=== PATIENT | female | born 1965 | race American Indian/Alaskan Native ===

== ENCOUNTER 2016-07-06 16:40 | Emergency (ER) | payer SELFPAY ==
[2016-07-06 17:28] VITALS: BP 139/98
[2016-07-06] MEDS ORDERED: NACL 0.9% 1000 ML 1,000 ML IV ONE (20:13)
[2016-07-06] MEDS ORDERED: TORADOL IV ONE (20:13)
[2016-07-06 20:33] LABS: Basophils % (Auto) 0.6 % (0.0-1.8); Eosinophils % (Auto) 0.5 % (0.0-4.3); Mean Corpuscular HGB Conc 31 % (30-34); Mean Corpuscular Volume 71 fl (79-97); Platelet Count 232 K/mm3 (140-440); Red Blood Count 4.68 M/mm3 (3.65-5.03); White Blood Count 10.4 K/mm3 (4.5-11.0)
[2016-07-06 20:36] LABS: Mean Corpuscular Hemoglobin 22 pg (28-32)
--- NOTE | 2016-07-06 20:41 | Emergency Department Report ---
ED General Adult HPI - General Chief complaint: Sore Throat Stated complaint: FEVER/THYROID PAIN/ Time Seen by Provider: 07/06/16 20:00 Source: patient Mode of arrival: Ambulatory Limitations: No Limitations - History of Present Illness Initial comments: PT states she is here for swelling in her throat. PT states she has had a lump in her throat for 1.5 years. PT states the swelling has gradually worsened over the last week. PT states she went to donate plasma and they would not let her donate due to the neck swelling. PT states she was told to go to the ED for evaluation three days ago. MD Complaint: mass on neck -: Gradual Location: neck Radiation: non-radiation Severity scale (0 -10): 9 Quality: sharp Consistency: constant Improves with: none Associated Symptoms: fever/chills, nausea/vomiting. denies: chest pain, cough, rash Treatments Prior to Arrival: none - Related Data Previous Rx's Medication Instructions Recorded Last Taken Type Ondansetron [Zofran ODT TAB] 8 mg PO Q8HR #6 tab.rapdis 05/08/15 Unknown Rx Allergies Allergy/AdvReac Type Severity Reaction Status Date / Time No Known Allergies Allergy Verified 05/08/15 04:05 ED Review of Systems ROS: Stated complaint: FEVER/THYROID PAIN/ Other details as noted in HPI Comment: All other systems reviewed and negative Constitutional: fever, malaise. denies: weakness ENT: throat pain Respiratory: denies: cough Cardiovascular: palpitations. denies: chest pain, syncope Gastrointestinal: nausea, diarrhea. denies: abdominal pain, vomiting Musculoskeletal: denies: back pain Skin: denies: rash, lesions, change in color, change in hair/nails ED Past Medical Hx - Past Medical History Previous Medical History?: No - Surgical History Additional Surgical History: tubal ligation - Social History Smoking Status: Current Every Day Smoker Substance Use Type: Alcohol - Medications Home Medications: Home Medications Medication Instructions Recorded Confirmed Last Taken Type Ondansetron [Zofran ODT TAB] 8 mg PO Q8HR #6 tab.rapdis 05/08/15 Unknown Rx ED Physical Exam - General Limitations: No Limitations General appearance: alert, in no apparent distress - Head Head exam: Present: atraumatic, normocephalic - Eye Eye exam: Present: normal appearance. Absent: conjunctival injection - ENT ENT exam: Present: normal exam, normal orophraynx, mucous membranes moist, TM's normal bilaterally, normal external ear exam - Neck Neck exam: Present: full ROM, thyromegaly, other (swelling to ant neck ). Absent: tenderness - Respiratory Respiratory exam: Present: normal lung sounds bilaterally. Absent: respiratory distress, wheezes, rales, rhonchi - Cardiovascular Cardiovascular Exam: Present: regular rate, normal rhythm - GI/Abdominal GI/Abdominal exam: Present: soft. Absent: tenderness - Extremities Exam Extremities exam: Present: normal inspection, full ROM - Back Exam Back exam: Present: normal inspection, full ROM - Neurological Exam Neurological exam: Present: alert, oriented X3 - Psychiatric Psychiatric exam: Present: normal affect, normal mood - Skin Skin exam: Present: warm, dry, intact, normal color. Absent: rash ED Course Vital Signs 07/06/16 17:20 Temperature 99.1 F Pulse Rate 85 Respiratory 18 Rate Blood Pressure 139/98 O2 Sat by Pulse 99 Oximetry - Reevaluation(s) Reevaluation #1: 07/06/16 20:45 PT aware of plan of care. PT has no questions at this time. Reevaluation #2: 07/06/16 22:39 Dr Chadwick aware of pt and plan of care. PT aware of dx and plan of care. - Consultations Consultation #1: 07/06/16 22:25 Dr Jones consulted, pt to follow up with office outpt. - Pulse Oximetry Interpretation Digit-Finger Initial Pulse Oximetry Readin Actions Taken: none ED Medical Decision Making - Lab Data Result diagrams: 07/06/16 20:20 07/06/16 20:20 - EKG Data -: EKG Interpreted by Me EKG shows normal: sinus rhythm Rate: normal - Radiology Data Radiology results: report reviewed CR neck- large complex left thyroid mass - Differential Diagnosis goiter, thyroid abnormality Critical Care Time: No Critical care attestation.: If time is entered above; I have spent that time in minutes in the direct care of this critically ill patient, excluding procedure time. ED Disposition Clinical Impression: Thyroid mass Disposition: DISCHARGED TO HOME OR SELFCARE Is pt being admited?: No Does the pt Need Aspirin: No Condition: Stable Instructions: Autoimmune Thyroid Disorders (ED) Additional Instructions: Call the surgeon's office tomorrow to schedule follow up. You may need an Ultrasound of your thyroid or a needle biopsy, the surgeon can manage this for you Referrals: PRIMARY CARE, [Primary Care Provider] - 3-5 Days ROSA M FAYE MD [Referring] - 3-5 Days DREA JONES MD [Staff Physician] - 3-5 Days [facility] [Outside] - 3-5 Days [facility] [Outside] - 3-5 Days Time of Disposition: 22:44
[2016-07-06 20:56] LABS: Alanine Aminotransferase 9 units/L (7-56); Alkaline Phosphatase 82 units/L (35-129); Anion Gap 17 mmol/L; Bilirubin,Total 0.4 mg/dL (0.1-1.2); Blood Urea Nitrogen 6 mg/dL (7-17); Calcium 9.4 mg/dL (8.4-10.2); Carbon Dioxide 24 mmol/L (22-30); Chloride 97.4 mmol/L (98-107); Glucose 84 mg/dL (65-100); Potassium 3.7 mmol/L (3.6-5.0); Sodium 135 mmol/L (137-145); Total Protein 7.9 g/dL (6.3-8.2)
--- NOTE | 2016-07-06 22:00 | Cat Scan Report ---
FINAL REPORT PROCEDURE: CT NECK W CON TECHNIQUE: Computerized axial tomography of the soft tissue neck was performed following the IV injection of iodinated nonionic contrast. HISTORY: mass COMPARISON: No prior studies are available for comparison. FINDINGS: Skull and scalp: Normal. Paranasal sinuses: Normal. Nasopharynx: Normal . Oral cavity: Limited evaluation due to streak artifact from dental amalgam. Epiglottis/vallecula: Normal . Larynx/pyriform sinuses: Normal . Thyroid gland: There is a complex multiloculated large left thyroid mass with central low-attenuation, suggesting a cystic component, and peripheral calcification. This measures up to 4.0 centimeters AP by 4.0 centimeters transverse by 5.9 centimeters craniocaudal. This deviates the trachea to the right. Lymph nodes: None enlarged . Salivary glands: Normal . Upper thorax: Normal . IMPRESSION: Large complex left thyroid mass. Recommend further evaluation.
== END 2016-07-06 23:00 | disposition home or self-care (01) ==
LOC: ED 16:40
DX: E07.89 Other specified disorders of thyroid (principal); F17.200 Nicotine dependence, unspecified, uncomplicated; Z98.51 Tubal ligation status
CPT/HCPCS: 36415; 70491; 80053; 84439; 84443; 84484; 85025; 93005; 93010; 96361; 96374; 99284; J1885; J7030; Q9967

== ENCOUNTER 2017-08-10 13:43 | Emergency (ER) | payer SELFPAY ==
[2017-08-10 14:41] LABS: Basophils # (Auto) 0.1 K/mm3 (0.0-0.1); Basophils % (Auto) 0.8 % (0.0-1.8); Eosinophils # (Auto) 0.1 K/mm3 (0.0-0.4); Eosinophils % (Auto) 1.1 % (0.0-4.3); Hemoglobin 11.8 gm/dl (10.1-14.3); Lymphocytes # (Auto) 2.1 K/mm3 (1.2-5.4); Lymphocytes % (Auto) 31.3 % (13.4-35.0); Mean Corpuscular HGB Conc 33 % (30-34); Mean Corpuscular Hemoglobin 28 pg (28-32); Mean Corpuscular Volume 86 fl (79-97); Monocytes # (Auto) 0.5 K/mm3 (0.0-0.8); Platelet Count 183 K/mm3 (140-440); Red Blood Count 4.17 M/mm3 (3.65-5.03); Red Cell Distribution Width 17.9 % (13.2-15.2)
[2017-08-10 14:45] LABS: Bacteria,Urine 1+ /HPF (Negative); Bilirubin,Urine NEG (Negative); Blood,Urine LG (Negative); Color,Urine Yellow (Yellow); Protein,Urine <15 mg/dL mg/dL (Negative); Urobilinogen,Urine < 2.0 mg/dL (<2.0); WBC,Urine < 1.0 /HPF (0.0-6.0)
[2017-08-10 14:49] LABS: BUN/Creatinine Ratio 13; Blood Urea Nitrogen 10 mg/dL (7-17); Calcium 9.1 mg/dL (8.4-10.2); Hemolysis Index 39
[2017-08-10] MEDS ORDERED: NORCO 5/325 PO ONE (21:27)
--- NOTE | 2017-08-10 21:51 | Emergency Department Report ---
HPI - General Chief Complaint: Vaginal Bleeding Time Seen by Provider: 08/10/17 21:18 - HPI HPI: 52-year-old female presents to the emergency department with complaint of vaginal bleeding and some pelvic discomfort. The patient says that the vaginal bleeding has been going on since about July 10, for about 32 days. It first started off as spotting but by the third day she said that she went through an entire box of pads in one day. Since that time the intensity of the bleeding well increase and decrease intermittently but she often feels like she has heavy bleeding with clots. She has not seen any PORTAINER OPERATOR and she says she does not have insurance to do so. She has a past medical history of fibroids and a tubal ligation. She has not taken anything for her symptoms prior to presentation. She denies any fever, nausea, vomiting, chest pain, shortness of breath. She has been taking iron supplements intermittently but started to feels if they increased the bleeding so she stopped it. ED Past Medical Hx - Past Medical History Previous Medical History?: Yes Additional medical history: fibroids - Surgical History Past Surgical History?: Yes Additional Surgical History: tubal ligation - Social History Smoking Status: Current Every Day Smoker Substance Use Type: Alcohol, Marijuana - Medications Home Medications: Home Medications Medication Instructions Recorded Confirmed Last Taken Type Ondansetron [Zofran ODT TAB] 8 mg PO Q8HR #6 tab.rapdis 05/08/15 Unknown Rx Ibuprofen [Motrin] 600 mg PO Q8H PRN #15 tablet 07/06/16 Unknown Rx HYDROcodone/ACETAMINOPHEN [[place] 1 each PO Q8H PRN #14 tablet 08/11/17 Unknown Rx 5-325 Tablet] Sulfamethoxazole/Trimethoprim 1 each PO BID #14 tablet 08/11/17 Unknown Rx [Bactrim DS TAB] ED Review of Systems ROS: Stated complaint: VAG BLEED Other details as noted in HPI Comment: All other systems reviewed and negative Constitutional: denies: chills, fever Eyes: denies: eye pain, eye discharge, vision change ENT: denies: ear pain, throat pain Respiratory: denies: cough, shortness of breath, wheezing Cardiovascular: denies: chest pain, palpitations Gastrointestinal: denies: abdominal pain, nausea, diarrhea Genitourinary: other (pelvic pain, heavy vaginal bleeding). denies: dysuria, discharge Musculoskeletal: denies: back pain, joint swelling, arthralgia Skin: denies: rash, lesions Neurological: denies: headache, weakness, paresthesias Physical Exam - Physical Exam Vital Signs: Vital Signs 08/10/17 13:59 Temperature 98.8 F Pulse Rate 76 Respiratory 16 Rate Blood Pressure 125/78 O2 Sat by Pulse 100 Oximetry Physical Exam: GENERAL: The patient is well-developed well-nourished. HENT: Normocephalic. Atraumatic. Patient has moist mucous membranes. EYES: Extraocular motions are intact. Pupils equal reactive to light bilaterally. NECK: Supple. Trachea is midline. CHEST/LUNGS: Clear to auscultation. There is no respiratory distress noted. HEART/CARDIOVASCULAR: Regular. There is no tachycardia. There is no murmur. ABDOMEN: Abdomen is soft, nontender. Patient has normal bowel sounds. There is no abdominal distention. SKIN: Skin is warm and dry. NEURO: The patient is awake, alert, and oriented. The patient is cooperative. The patient has no focal neurologic deficits. The patient has normal speech. MUSCULOSKELETAL: There is no tenderness or deformity. There is no limitation range of motion. There is no evidence of acute injury. : There is mild dark appearing blood in the vaginal vault. No active hemorrhage. There is a area of swelling to the left anterior inferior labia that has some mild fluctuance but no erythema or warmth that appears consistent with a bartholin gland cyst ED Course Vital Signs 08/10/17 13:59 Temperature 98.8 F Pulse Rate 76 Respiratory 16 Rate Blood Pressure 125/78 O2 Sat by Pulse 100 Oximetry ED Medical Decision Making - Lab Data Result diagrams: 08/10/17 14:17 08/10/17 14:17 - Radiology Data Radiology results: report reviewed PROCEDURE: Transvaginal pelvic ultrasound with Doppler. TECHNIQUE: Real-time transvaginal sonography in multiple planes of the pelvis was performed with image documentation. Grayscale, color flow Doppler imaging and velocity spectral waveform analysis of the ovaries was employed (duplex imaging). CPT 30209 and 40312 HISTORY: pelvic pain, heavy vag bleeding COMPARISON: No prior studies are available for comparison. FINDINGS: There are focal masses in the uterus with some peripheral calcification. These are consistent with leiomyomas. The largest measures approximately 6.3 centimeters in diameter. The endometrial echo complex measures approximately 9 millimeters. There is a small nabothian cyst. The right ovary appears normal. There is normal blood flow demonstrated by Doppler spectral analysis. There are 2 small cysts in the left ovary. There is normal left ovarian blood flow by Doppler evaluation. There is no free fluid in the cul-de-sac. IMPRESSION: At least 3 uterine leiomyomas. Two small left ovarian cysts. Transcribed By: [facility] Dictated By: SARAVANAN GOMEZ MD Electronically Authenticated By: SARAVANAN GOMEZ MD Signed Date/Time: 08/10/17 9878 - Medical Decision Making Patient presents with about one month history of vaginal bleeding that sometimes is very heavy as well as some pelvic pain. The patient does have a history of fibroids and ovarian cysts. Labs are mostly unremarkable. There is no leukocytosis. Her hemoglobin is 11.8. Ultrasound shows 3 moderate sized leiomyomas and 2 small left ovarian cyst. This is most likely the source of her discomfort and this dysfunctional uterine bleeding. Vital signs stable including being afebrile. The patient does not have any significant anemia at this time. On physical exam there is not any significant hemorrhage or amount of blood in the vaginal vault. For this reason the patient appears safe for discharge home at this time. She has been given multiple referrals for PORTAINER OPERATOR services and was sent home with some antibiotics and pain medication. She will return to the ER with any worsening symptoms or any acute distress. - Differential Diagnosis fibroids, malignancy, UTI, ovarian cyst Critical Care Time: No Critical care attestation.: If time is entered above; I have spent that time in minutes in the direct care of this critically ill patient, excluding procedure time. ED Disposition Clinical Impression: Dysfunctional uterine bleeding, Fibroids, Bartholin gland cyst Disposition: DC-01 TO HOME OR SELFCARE Is pt being admited?: No Condition: Stable Instructions: Dysfunctional Uterine Bleeding (ED), Uterine Fibroids (ED), Bartholin Cyst (ED) Additional Instructions: Please follow up with an PORTAINER OPERATOR service in the next few days and I have given you multiple referrals. Return to the emergency Department with any worsening of your symptoms or any acute distress. You have been prescribed a medication that is sedating and therefore should not be taken prior to driving, working, and responsible for children and in no way should be mixed with alcohol of any quantity. Prescriptions: HYDROcodone/ACETAMINOPHEN [[place] 5-325 Tablet] 1 each PO Q8H PRN #14 tablet PRN Reason: Pain Sulfamethoxazole/Trimethoprim [Bactrim DS TAB] 1 each PO BID #14 tablet Referrals: [facility] [Provider Group] - 3-5 Days [facility] [Provider Group] - 3-5 Days [facility] [Provider Group] - 3-5 Days BRENDA STEEL MD [Staff Physician] - 3-5 Days Time of Disposition: 00:37
--- NOTE | 2017-08-10 23:42 | Ultrasound Report ---
FINAL REPORT PROCEDURE: Transabdominal pelvic ultrasound with Doppler. TECHNIQUE: Real-time transabdominal sonography in multiple planes of the pelvis was performed with image documentation. Grayscale, color flow Doppler imaging and velocity spectral waveform analysis of the ovaries was employed (duplex imaging). CPT 01189 and 51617 HISTORY: Pelvic pain, heavy vaginal bleeding. COMPARISON: No prior studies are available for comparison. FINDINGS: Image quality is limited because the bladder was not distended. The uterus measures 11.7 centimeters x 7.0 centimeters x 8.7 centimeters. There are at least 3 focal masses within the uterine myometrium. The 2 largest are in the fundus. These measure approximately 6.3 centimeters and 6.2 centimeters in maximum dimension. They are consistent with leiomyomas. The endometrial echo complex is poorly defined. There is a cystic mass in the left ovary measuring 2.2 centimeters in maximum dimension. There is normal left ovarian blood flow by Doppler. The right ovary is not definitely visualized. IMPRESSION: Uterine leiomyomas. Left ovarian cyst.
--- NOTE | 2017-08-10 23:47 | Ultrasound Report ---
FINAL REPORT PROCEDURE: Transvaginal pelvic ultrasound with Doppler. TECHNIQUE: Real-time transvaginal sonography in multiple planes of the pelvis was performed with image documentation. Grayscale, color flow Doppler imaging and velocity spectral waveform analysis of the ovaries was employed (duplex imaging). CPT 22487 and 16951 HISTORY: pelvic pain, heavy vag bleeding COMPARISON: No prior studies are available for comparison. FINDINGS: There are focal masses in the uterus with some peripheral calcification. These are consistent with leiomyomas. The largest measures approximately 6.3 centimeters in diameter. The endometrial echo complex measures approximately 9 millimeters. There is a small nabothian cyst. The right ovary appears normal. There is normal blood flow demonstrated by Doppler spectral analysis. There are 2 small cysts in the left ovary. There is normal left ovarian blood flow by Doppler evaluation. There is no free fluid in the cul-de-sac. IMPRESSION: At least 3 uterine leiomyomas. Two small left ovarian cysts.
[2017-08-11 00:56] VITALS: BP 154/94
== END 2017-08-11 00:55 | disposition home or self-care (01) ==
LOC: ED 13:43
DX: D25.9 Leiomyoma of uterus, unspecified (principal); N93.8 Other specified abnormal uterine and vaginal bleeding; N75.0 Cyst of Bartholin's gland; F17.200 Nicotine dependence, unspecified, uncomplicated; F12.10 Cannabis abuse, uncomplicated; Z98.51 Tubal ligation status
CPT/HCPCS: 36415; 76830; 80048; 81001; 84703; 85025; 86850; 86900; 86901; 93975

== ENCOUNTER 2017-08-17 10:04 | Outpatient (CLI) | payer OTHER ==
--- NOTE | 2017-08-17 10:31 | XRay Report ---
Lumbar spine 3 views: History: Bladder tumor, degenerative disc disease. Findings: Normal height of vertebral bodies and intervertebral disc. Sclerotic articular surfaces with peripheral osteophytes suggestive early degenerative changes. No fracture. There is 2 cm soft tissue calcification noted posterior to the coccyx probably related to previous injury. Impression: Degenerative disease. Additional findings as detailed above
== END 2017-08-17 10:05 | disposition home or self-care (01) ==
LOC: XRAY 10:04
PROVIDERS: ATTEND Internal Medicine
DX: M51.36 Other intervertebral disc degeneration, lumbar region (principal); M51.26 Other intervertebral disc displacement, lumbar region
CPT/HCPCS: 72100

== ENCOUNTER 2018-11-10 15:24 | Emergency (ER) | payer SELFPAY ==
[2018-11-10 15:34] VITALS: BP 131/80
--- NOTE | 2018-11-10 16:45 | Emergency Department Report ---
- General Chief complaint: Skin/Abscess/Foreign Body Stated complaint: VAGINAL AREA/PACKING REMOVED Time Seen by Provider: 11/10/18 16:13 Source: patient Mode of arrival: Ambulatory Limitations: No Limitations - History of Present Illness Initial comments: Patient is a 53-year-old female presents to the emergency room for packing removal. she was evaluated in the emergency department on 11/08 for a left Bartholin's cyst and had an I&D performed at that time. She denies any drainage, pain, fever. she has not followed up with an HOSPITAL CODER. She has no past medical history or allergies to medications. - Related Data Previous Rx's Medication Instructions Recorded Last Taken Type Ondansetron [Zofran ODT TAB] 8 mg PO Q8HR #6 tab.rapdis 05/08/15 Unknown Rx Ibuprofen [Motrin] 600 mg PO Q8H PRN #15 tablet 07/06/16 Unknown Rx HYDROcodone/ACETAMINOPHEN [[place] 1 each PO Q8H PRN #14 tablet 08/11/17 Unknown Rx 5-325 Tablet] Sulfamethoxazole/Trimethoprim 1 each PO BID #14 tablet 08/11/17 Unknown Rx [Bactrim DS TAB] Acetaminophen/Codeine [Tylenol 1 tab PO Q6H PRN #12 tab 11/08/18 Unknown Rx /Codeine # 3 tab] Sulfamethoxazole/Trimethoprim 1 each PO BID #14 tablet 11/08/18 Unknown Rx [Bactrim DS TAB] Ondansetron [Zofran Odt] 4 mg PO Q8HR PRN #20 tab.rapdis 11/10/18 Unknown Rx Allergies Allergy/AdvReac Type Severity Reaction Status Date / Time No Known Allergies Allergy Verified 11/08/18 14:06 Abscess Boil HPI - HPI Chief Complaint: Skin/Abscess/Foreign Body Stated Complaint: VAGINAL AREA/PACKING REMOVED Time Seen by Provider: 11/10/18 16:13 Home Medications: Previous Rx's Medication Instructions Recorded Last Taken Type Ondansetron [Zofran ODT TAB] 8 mg PO Q8HR #6 tab.rapdis 05/08/15 Unknown Rx Ibuprofen [Motrin] 600 mg PO Q8H PRN #15 tablet 07/06/16 Unknown Rx HYDROcodone/ACETAMINOPHEN [[place] 1 each PO Q8H PRN #14 tablet 08/11/17 Unknown Rx 5-325 Tablet] Sulfamethoxazole/Trimethoprim 1 each PO BID #14 tablet 08/11/17 Unknown Rx [Bactrim DS TAB] Acetaminophen/Codeine [Tylenol 1 tab PO Q6H PRN #12 tab 11/08/18 Unknown Rx /Codeine # 3 tab] Sulfamethoxazole/Trimethoprim 1 each PO BID #14 tablet 11/08/18 Unknown Rx [Bactrim DS TAB] Ondansetron [Zofran Odt] 4 mg PO Q8HR PRN #20 tab.rapdis 11/10/18 Unknown Rx Allergies/Adverse Reactions: Allergies Allergy/AdvReac Type Severity Reaction Status Date / Time No Known Allergies Allergy Verified 11/08/18 14:06 ED Review of Systems ROS: Stated complaint: VAGINAL AREA/PACKING REMOVED Other details as noted in HPI Comment: All other systems reviewed and negative ED Past Medical Hx - Past Medical History Previous Medical History?: Yes Hx Asthma: No Additional medical history: fibroids - Surgical History Additional Surgical History: tubal ligation - Social History Smoking Status: Current Every Day Smoker Substance Use Type: Marijuana - Medications Home Medications: Home Medications Medication Instructions Recorded Confirmed Last Taken Type Ondansetron [Zofran ODT TAB] 8 mg PO Q8HR #6 tab.rapdis 05/08/15 Unknown Rx Ibuprofen [Motrin] 600 mg PO Q8H PRN #15 tablet 07/06/16 Unknown Rx HYDROcodone/ACETAMINOPHEN [[place] 1 each PO Q8H PRN #14 tablet 08/11/17 Unknown Rx 5-325 Tablet] Sulfamethoxazole/Trimethoprim 1 each PO BID #14 tablet 08/11/17 Unknown Rx [Bactrim DS TAB] Acetaminophen/Codeine [Tylenol 1 tab PO Q6H PRN #12 tab 11/08/18 Unknown Rx /Codeine # 3 tab] Sulfamethoxazole/Trimethoprim 1 each PO BID #14 tablet 11/08/18 Unknown Rx [Bactrim DS TAB] Ondansetron [Zofran Odt] 4 mg PO Q8HR PRN #20 tab.rapdis 11/10/18 Unknown Rx ED Physical Exam - General Limitations: No Limitations General appearance: alert, in no apparent distress - Head Head exam: Present: atraumatic, normocephalic - Eye Eye exam: Present: normal appearance - ENT ENT exam: Present: mucous membranes moist - Respiratory Respiratory exam: Present: normal lung sounds bilaterally. Absent: respiratory distress, wheezes, rales, rhonchi, stridor, accessory muscle use, decreased breath sounds, prolonged expiratory - Cardiovascular Cardiovascular Exam: Present: regular rate, normal rhythm, normal heart sounds. Absent: systolic murmur, diastolic murmur, rubs, gallop - GI/Abdominal GI/Abdominal exam: Present: soft, normal bowel sounds. Absent: distended, tenderness, guarding, rebound, rigid - External exam: Present: other (small healing incision to the left labia, no drainage, no packing present, no fluctuance, no drainage on manual expression, appears clean, dry, intact centrifugal spinner: SONALI harry) - Back Exam Back exam: Absent: CVA tenderness (R), CVA tenderness (L) - Neurological Exam Neurological exam: Present: alert, oriented X3 - Psychiatric Psychiatric exam: Present: normal affect, normal mood - Skin Skin exam: Present: warm, dry, intact ED Course Vital Signs 11/10/18 15:32 Temperature 98.7 F Pulse Rate 80 Respiratory 16 Rate Blood Pressure 131/80 O2 Sat by Pulse 96 Oximetry ED Medical Decision Making - Medical Decision Making Patient is a 53-year-old female presents to the emergency room for packing removal. she was evaluated in the emergency department on 11/08 for a left Bartholin's cyst and had an I&D performed at that time. She denies any drainage, pain, fever. she has not followed up with an HOSPITAL CODER. She has no past medical history or allergies to medications. on exam: small healing incision to the left labia, no drainage, no packing present, no fluctuance, no drainage on manual expression, appears clean, dry, intact centrifugal spinner: SONALI harry. pt states she does remember a small piece of what she thought was "gauze" come out earlier in the day. discussed with pt that it was most likely the packing as there is no packing present on exam today. area was irrigated with 20 cc of saline and cleaned with gauze. pt states that her abx makes her nauseous and requests a nausea medication. pt given prescription for zofran. advised to please take medication as prescribed as needed. Take the medication 30 minutes before taking your antibiotic. Please complete your antibiotics you were prescribed during your last visit. Follow up with an HOSPITAL CODER in the next 2-3 days for further examination. Return to the emergency room for any new or worsening symptoms. Critical care attestation.: If time is entered above; I have spent that time in minutes in the direct care of this critically ill patient, excluding procedure time. ED Disposition Clinical Impression: Abscess packing removal, Bartholin cyst Disposition: TO HOME OR SELFCARE Is pt being admited?: No Does the pt Need Aspirin: No Condition: Stable Instructions: Bartholin Cyst (ED) Additional Instructions: Please take medication as prescribed as needed. Take the medication 30 minutes before taking your antibiotic. Please complete your antibiotics you were prescribed during your last visit. Follow up with an HOSPITAL CODER in the next 2-3 days for further examination. Return to the emergency room for any new or worsening symptoms. Prescriptions: Ondansetron [Zofran Odt] 4 mg PO Q8HR PRN #20 tab.rapdis PRN Reason: Nausea Referrals: BAM MENDIOLAFORGAN MD [facility]O [Primary Care Provider] - 2-3 Days [facility] [Provider Group] - 2-3 Days [facility] [Provider Group] - 2-3 Days [facility] [Provider Group] - 2-3 Days Time of Disposition: 16:56 Print Language: BENINESE
== END 2018-11-10 17:00 | disposition home or self-care (01) ==
LOC: ED 15:24
DX: Z48.01 Encounter for change or removal of surgical wound dressing (principal); D25.9 Leiomyoma of uterus, unspecified; F17.200 Nicotine dependence, unspecified, uncomplicated; F12.10 Cannabis abuse, uncomplicated; Z98.51 Tubal ligation status; Z79.899 Other long term (current) drug therapy

== ENCOUNTER 2018-12-24 15:46 | Emergency (ER) | payer OTHER ==
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
[2018-12-24] MEDS ORDERED: IBUPROFEN PO ONE (17:59)
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
[2018-12-24 18:19] VITALS: BP 131/100
== END 2018-12-24 18:18 | disposition home or self-care (01) ==
LOC: ED 15:46
DX: S76.012A Strain of muscle, fascia and tendon of left hip, initial encounter (principal); S13.4XXA Sprain of ligaments of cervical spine, initial encounter; S39.012A Strain of muscle, fascia and tendon of lower back, initial encounter; F17.200 Nicotine dependence, unspecified, uncomplicated; F12.10 Cannabis abuse, uncomplicated; Z98.51 Tubal ligation status; Z79.899 Other long term (current) drug therapy; V89.2XXA Person injured in unspecified motor-vehicle accident, traffic, initial encounter; Y93.89 Activity, other specified; Y92.410 Unspecified street and highway as the place of occurrence of the external cause; Y99.8 Other external cause status
CPT/HCPCS: 72040; 72100